=== PATIENT | male | born 1965 | race Two or more races ===

== ENCOUNTER 2023-07-12 05:30 | Day surgery (SDC) | payer OTHER ==
[~2023-07-12] VITALS: Ht 170.2 cm; Wt 101.2 kg
[~2023-07-12 05:30] MED LIST: AVAPRO300 MG PO; HYDROCHLOROTHIA25 MG PO; NORVASC5 MG PO; PROTONIX40 MG PO; UROXATRAL10 MG PO
== END 2023-07-12 12:50 | disposition home or self-care (01) ==
LOC: CIR.AMB 05:30
PROVIDERS: ATTEND Surgery
DX: K40.20 Bilateral inguinal hernia, without obstruction or gangrene, not specified as recurrent (principal); D17.6 Benign lipomatous neoplasm of spermatic cord; Z20.822 Contact with and (suspected) exposure to COVID-19; I10 Essential (primary) hypertension; E66.9 Obesity, unspecified

== ENCOUNTER → 2023-11-04 | Outpatient (CLI) | payer OTHER | END | disposition home or self-care (01) | LOC: SONOGRAMA 10:55 | PROVIDERS: ATTEND Pathology Anatomic Pathology & Clinical Pathology | DX: L76.34 Postprocedural seroma of skin and subcutaneous tissue following other procedure (principal) ==